=== PATIENT | female | born 1940 | race Caucasian/White ===

== ENCOUNTER 2023-09-25 13:23 | Inpatient (IN) | payer BC ==
[~2023-09-25] VITALS: Ht 142.2 cm; Wt 65.5 kg
[2023-09-25 13:25] VITALS: BP_SYST 164; PULSE 70; RESP 18; TEMP 98.3; O2SAT 98
[2023-09-25] MEDS ORDERED: ONDANSETRON HCL 4 MG/2 ML VIAL IVP ONE (14:45)
[2023-09-25] MEDS ORDERED: MORPHINE 4 MG INJ. 4 MG/ML VIAL IVP ONE (14:45)
[2023-09-25 15:06] LABS: BASOPHILS % (AUTO) 0.5 % (0.0-2.0); EOSINOPHILS % (AUTO) 0.3 % (0.0-4.0); HEMATOCRIT 36.9 % (36-48); HEMOGLOBIN 12.3 g/dL (12.0-16.0); LYMPHOCYTES # (AUTO) 1.2 K/uL (1.0-5.5); LYMPHOCYTES % (AUTO) 11.2 % (20.5-51.5); MEAN CORPUSCULAR HEMOGLOBIN 29 pg (27-31); MEAN CORPUSCULAR HGB CONC 33 % (32-36); MEAN CORPUSCULAR VOLUME 87 fL (79.0-98.0); MONOCYTES # (AUTO) 0.6 K/uL (0.0-1.0); MONOCYTES % (AUTO) 5.8 % (1.7-9.3); NEUTROPHILS # (AUTO) 8.5 K/uL (1.8-7.7); NEUTROPHILS % (AUTO) 82.2 % (40.0-70.0); PLATELET COUNT (AUTO) 275 K/uL (130-430); RED BLOOD CELL COUNT(AUTO) 4.25 MIL/uL (4.2-6.2); RED CELL DISTRIBUTION WIDTH 14.6 % (9.0-15.0); WHITE BLOOD COUNT (AUTO) 10.4 K/uL (4.8-10.8)
[2023-09-25 15:16] LABS: ANION GAP 10 (5-15); CALCIUM 9.4 mg/dL (8.4-11.0); CARBON DIOXIDE 21 mmol/L (23-29); CHLORIDE 107 mmol/L (98-107); CREATININE 0.84 mg/dL (0.55-1.30); GLUCOSE 122 mg/dL (74-106); POTASSIUM 3.9 mmol/L (3.5-5.1); SODIUM SERUM 138 mmol/L (136-145); UREA NITROGEN, BLOOD 22 mg/dL (8-21)
[2023-09-25] MEDS ORDERED: MORPHINE 2 MG/ML INJ. SYRINGE IVP ONE ×2 (16:30→20:15)
[2023-09-25] MEDS ORDERED: TIZA2CAP7 PO (19:08)
[2023-09-25] MEDS ORDERED: CHOL4PAC20 (19:08)
[2023-09-25] MEDS ORDERED: OXYB-55 PO (19:08)
[2023-09-25] MEDS ORDERED: FAMO20TA8 PO (19:08)
[2023-09-25] MEDS ORDERED: IMO2 PO (19:09)
[2023-09-25] MEDS ORDERED: CILO50TA2 PO (19:09)
[2023-09-25] MEDS ORDERED: GABA1TAB3 PO (19:09)
[2023-09-25] MEDS ORDERED: CYCL1DRO16 EACH EYE (19:09)
[2023-09-25] MEDS ORDERED: ALEN70TA27 PO (19:09)
[2023-09-25] MEDS ORDERED: FLUO40CA49 PO (19:09)
[2023-09-25 23:50] LABS: BILIRUBIN,URINE NEGATIVE (NEGATIVE); BLOOD, URINE 1+ (NEGATIVE); CLARITY/URINE SL CLOUDY (CLEAR); COLOR,URINE YELLOW (YELLOW); GLUCOSE,URINE NEGATIVE (NEGATIVE); KETONES,URINE TRACE (NEGATIVE); LEUKOCYTE ESTERASE ,URINE 1+ (NEGATIVE); NITRITE, URINE POSITIVE (NEGATIVE); PROTEIN URINE NEGATIVE (NEGATIVE); UROBILINOGEN,URINE 0.2 (0.2-1.0)
[2023-09-26 00:09] LABS: WBC,URINE 20-50 /HPF (0-3)
[2023-09-26 00:10] LABS: BACTERIA,URINE MANY /HPF (None Seen)
[2023-09-26 03:40] VITALS: BP_SYST 174; PULSE 72; RESP 19; TEMP 97.8
[2023-09-26] MEDS: traMADol HCL HCL 50 MG TABLET (ULTRAM) PO PRN ×4 (04:56→20:48)
[2023-09-26] MEDS ORDERED: LOPERAMIDE HCL 2 MG CAPSULE PO ONE (07:45)
[2023-09-26 08:00] VITALS: O2SAT 98
[2023-09-26] MEDS ORDERED: TRAM50TA2 PO (10:46)
[2023-09-26 11:02] VITALS: BP_SYST 115; PULSE 70; RESP 16; TEMP 98.3; O2SAT 93
[2023-09-26 15:16] VITALS: BP_SYST 110; PULSE 79; RESP 16; TEMP 97.7; O2SAT 93
[2023-09-26 19:00] VITALS: O2SAT 98
[2023-09-26 20:00] VITALS: BP_SYST 153; PULSE 69; RESP 18; TEMP 100; O2SAT 98
[2023-09-26] MEDS ORDERED: KETOROLAC TROMETHAMINE 15 MG VIAL IVP ONE (20:00)
[2023-09-26] MEDS ORDERED: ACETAMINOPHEN I.V. 1000 MG 100 ML IV ONE ×2 (20:00→21:19)
[2023-09-27 00:12] VITALS: BP_SYST 132; PULSE 64; RESP 18; TEMP 97.5; O2SAT 95
[2023-09-27] MEDS: traMADol HCL HCL 50 MG TABLET (ULTRAM) PO PRN ×3 (02:51→17:01)
[2023-09-27 08:00] VITALS: BP_SYST 150; PULSE 66; RESP 16; TEMP 98.4; O2SAT 98
[2023-09-27] MEDS ORDERED: amLODIPine BESYLATE 5 MG TABLET PO ONE (10:00)
[2023-09-27 10:10] VITALS: O2SAT 99
[2023-09-27 10:22] LABS: BASOPHILS % (AUTO) 0.2 % (0.0-2.0); EOSINOPHILS % (AUTO) 0.4 % (0.0-4.0); HEMATOCRIT 34.8 % (36-48); HEMOGLOBIN 11.5 g/dL (12.0-16.0); LYMPHOCYTES # (AUTO) 1.2 K/uL (1.0-5.5); LYMPHOCYTES % (AUTO) 13.7 % (20.5-51.5); MEAN CORPUSCULAR HEMOGLOBIN 29 pg (27-31); MEAN CORPUSCULAR HGB CONC 33 % (32-36); MEAN CORPUSCULAR VOLUME 87 fL (79.0-98.0); MONOCYTES # (AUTO) 0.8 K/uL (0.0-1.0); MONOCYTES % (AUTO) 8.9 % (1.7-9.3); NEUTROPHILS # (AUTO) 6.5 K/uL (1.8-7.7); NEUTROPHILS % (AUTO) 76.8 % (40.0-70.0); PLATELET COUNT (AUTO) 215 K/uL (130-430); RED CELL DISTRIBUTION WIDTH 14.3 % (9.0-15.0); WHITE BLOOD COUNT (AUTO) 8.5 K/uL (4.8-10.8)
[2023-09-27 10:41] LABS: ALANINE AMINOTRANSFERASE 45 U/L (12-78); ALBUMIN 3.1 g/dL (3.4-4.8); ANION GAP 9 (5-15); ASPARTATE AMINOTRANSFERASE 40 U/L (10-37); CALCIUM 8.4 mg/dL (8.4-11.0); CARBON DIOXIDE 25 mmol/L (23-29); CHLORIDE 101 mmol/L (98-107); CREATININE 0.61 mg/dL (0.55-1.30); GLUCOSE 120 mg/dL (74-106); POTASSIUM 3.4 mmol/L (3.5-5.1); SODIUM SERUM 135 mmol/L (136-145); TOTAL BILIRUBIN 0.6 mg/dL (0.0-1.0); TOTAL PROTEIN, SERUM 6.7 g/dL (6.4-8.3); UREA NITROGEN, BLOOD 9 mg/dL (8-21)
[2023-09-27 11:12] VITALS: BP_SYST 127; PULSE 64; RESP 16; TEMP 97.3; O2SAT 96
[2023-09-27] MEDS ORDERED: NALOXONE HCL 0.4 MG/ML AMP (NARCAN) IVP PRN (11:45)
[2023-09-27 16:12] VITALS: BP_SYST 138; PULSE 72; RESP 16; TEMP 97.4; O2SAT 98
[2023-09-27] MEDS: cefTRIAXone 1 GM in D5W 50 ML IV SCH (17:45)
[2023-09-27 20:00] VITALS: BP_SYST 150; PULSE 70; RESP 16; TEMP 99; O2SAT 95
[2023-09-27] MEDS: ACETAMINOPHEN 325 MG TABLET PO PRN (21:58)
[2023-09-27] MEDS: MORPHINE 2 MG/ML INJ. SYRINGE IVP PRN (22:06)
[2023-09-28 00:05] VITALS: BP_SYST 125; PULSE 67; RESP 17; TEMP 97.8; O2SAT 97
[2023-09-28] MEDS: MORPHINE 2 MG/ML INJ. SYRINGE IVP PRN ×3 (03:50→17:36)
[2023-09-28 08:10] VITALS: BP_SYST 116; PULSE 75; RESP 18; TEMP 98.4; O2SAT 98
[2023-09-28] MEDS: traMADol HCL HCL 50 MG TABLET (ULTRAM) PO PRN ×2 (09:47→20:09)
[2023-09-28] MEDS: amLODIPine BESYLATE 5 MG TABLET PO SCH (09:47)
[2023-09-28 10:02] LABS: BASOPHILS % (AUTO) 0.4 % (0.0-2.0); EOSINOPHILS # (AUTO) 0.1 K/uL (0.0-0.4); EOSINOPHILS % (AUTO) 0.8 % (0.0-4.0); HEMATOCRIT 35.4 % (36-48); HEMOGLOBIN 11.5 g/dL (12.0-16.0); LYMPHOCYTES # (AUTO) 1.1 K/uL (1.0-5.5); LYMPHOCYTES % (AUTO) 13.7 % (20.5-51.5); MEAN CORPUSCULAR HEMOGLOBIN 28 pg (27-31); MEAN CORPUSCULAR HGB CONC 32 % (32-36); MEAN CORPUSCULAR VOLUME 87 fL (79.0-98.0); MONOCYTES # (AUTO) 0.7 K/uL (0.0-1.0); NEUTROPHILS # (AUTO) 6.2 K/uL (1.8-7.7); NEUTROPHILS % (AUTO) 76.1 % (40.0-70.0); PLATELET COUNT (AUTO) 278 K/uL (130-430); RED BLOOD CELL COUNT(AUTO) 4.08 MIL/uL (4.2-6.2); RED CELL DISTRIBUTION WIDTH 14.4 % (9.0-15.0); WHITE BLOOD COUNT (AUTO) 8.2 K/uL (4.8-10.8)
[2023-09-28 10:21] LABS: ALANINE AMINOTRANSFERASE 39 U/L (12-78); ANION GAP 10 (5-15); ASPARTATE AMINOTRANSFERASE 31 U/L (10-37); CALCIUM 9.2 mg/dL (8.4-11.0); CARBON DIOXIDE 25 mmol/L (23-29); CHLORIDE 101 mmol/L (98-107); CREATININE 0.61 mg/dL (0.55-1.30); GLUCOSE 145 mg/dL (74-106); POTASSIUM 3.1 mmol/L (3.5-5.1); SODIUM SERUM 136 mmol/L (136-145); TOTAL BILIRUBIN 0.5 mg/dL (0.0-1.0); TOTAL PROTEIN, SERUM 6.9 g/dL (6.4-8.3); UREA NITROGEN, BLOOD 12 mg/dL (8-21)
[2023-09-28 12:00] VITALS: BP_SYST 121; PULSE 70; RESP 16; TEMP 98.7; O2SAT 98
[2023-09-28 16:19] VITALS: BP_SYST 118; PULSE 73; RESP 17; TEMP 98.6; O2SAT 97
[2023-09-28] MEDS: cefTRIAXone 1 GM in D5W 50 ML IV SCH (17:37)
[2023-09-28 20:00] VITALS: BP_SYST 139; PULSE 72; RESP 16; TEMP 97.7; O2SAT 97
[2023-09-28 20:30] VITALS: O2SAT 97
[2023-09-29] VITALS: BP_SYST 134; PULSE 88; RESP 16; TEMP 98; O2SAT 97
[2023-09-29] MEDS: MORPHINE 2 MG/ML INJ. SYRINGE IVP PRN (00:44)
[2023-09-29] MEDS ORDERED: POTASSIUM CHLORIDE 20 MEQ TABLET.ER PO ONE (02:45)
[2023-09-29] MEDS: traMADol HCL HCL 50 MG TABLET (ULTRAM) PO PRN ×3 (03:04→16:52)
[2023-09-29 08:00] VITALS: BP_SYST 126; PULSE 82; RESP 18; TEMP 98.2; O2SAT 96; O2SAT 99
[2023-09-29 08:30] LABS: BASOPHILS % (AUTO) 0.2 % (0.0-2.0); EOSINOPHILS % (AUTO) 0.2 % (0.0-4.0); HEMATOCRIT 34.3 % (36-48); HEMOGLOBIN 11.2 g/dL (12.0-16.0); LYMPHOCYTES # (AUTO) 1.1 K/uL (1.0-5.5); LYMPHOCYTES % (AUTO) 11.2 % (20.5-51.5); MEAN CORPUSCULAR HEMOGLOBIN 28 pg (27-31); MEAN CORPUSCULAR HGB CONC 33 % (32-36); MEAN CORPUSCULAR VOLUME 87 fL (79.0-98.0); MONOCYTES # (AUTO) 0.9 K/uL (0.0-1.0); MONOCYTES % (AUTO) 9.9 % (1.7-9.3); NEUTROPHILS # (AUTO) 7.4 K/uL (1.8-7.7); NEUTROPHILS % (AUTO) 78.5 % (40.0-70.0); PLATELET COUNT (AUTO) 290 K/uL (130-430); RED BLOOD CELL COUNT(AUTO) 3.96 MIL/uL (4.2-6.2); RED CELL DISTRIBUTION WIDTH 14.6 % (9.0-15.0); WHITE BLOOD COUNT (AUTO) 9.4 K/uL (4.8-10.8)
[2023-09-29 08:55] LABS: ALANINE AMINOTRANSFERASE 44 U/L (12-78); ALBUMIN 2.9 g/dL (3.4-4.8); ANION GAP 9 (5-15); ASPARTATE AMINOTRANSFERASE 42 U/L (10-37); CALCIUM 8.4 mg/dL (8.4-11.0); CARBON DIOXIDE 25 mmol/L (23-29); CHLORIDE 100 mmol/L (98-107); CREATININE 0.57 mg/dL (0.55-1.30); GLUCOSE 145 mg/dL (74-106); POTASSIUM 3.6 mmol/L (3.5-5.1); SODIUM SERUM 134 mmol/L (136-145); TOTAL BILIRUBIN 0.5 mg/dL (0.0-1.0); TOTAL PROTEIN, SERUM 6.8 g/dL (6.4-8.3); UREA NITROGEN, BLOOD 14 mg/dL (8-21)
[2023-09-29] MEDS: amLODIPine BESYLATE 5 MG TABLET PO SCH (10:28)
[2023-09-29 11:05] VITALS: BP_SYST 148; PULSE 75; RESP 16; TEMP 97.1; O2SAT 96
[2023-09-29] MEDS: ACETAMINOPHEN 325 MG TABLET PO PRN (12:47)
[2023-09-29 15:03] VITALS: BP_SYST 108; PULSE 79; RESP 16; TEMP 96.5; O2SAT 94
[2023-09-29 18:22] VITALS: BP_SYST 108; PULSE 79; RESP 16; TEMP 97.8
== END 2023-09-29 19:00 | DRG 563 ==
LOC: SED 13:23 → SMU 09-26 02:22 → OBSVTOIN 09-29 01:10
PROVIDERS: ADMIT Specialist; ATTEND Specialist
PROC: 2W3CX1Z Immobilization of Right Lower Arm using Splint (ICD-10-PCS; principal; 2023-09-29)
DX: S52.501A Unspecified fracture of the lower end of right radius, initial encounter for closed fracture (principal); S42.212A Unspecified displaced fracture of surgical neck of left humerus, initial encounter for closed fracture; N39.0 Urinary tract infection, site not specified; E87.1 Hypo-osmolality and hyponatremia; S52.611A Displaced fracture of right ulna styloid process, initial encounter for closed fracture; E87.6 Hypokalemia; W18.39XA Other fall on same level, initial encounter; Z79.899 Other long term (current) drug therapy; Y93.89 Activity, other specified; Y92.89 Other specified places as the place of occurrence of the external cause; Y99.8 Other external cause status
CPT/HCPCS: 36415; 70450-TC; 70490; 71045; 72125-TC; 73090; 73200-TC; 76376; 80048; 80053; 81000; 81001; 81015; 84484; 85025; 87086; 93005; 97110-GP; 97116-GP; 97163-GP; 97530-GP; 99285; G0378; J0131; J0696; J2270; J2405; J7060